=== PATIENT | male | born 1995 | race Caucasian/White ===

== ENCOUNTER 2018-11-16 06:24 | Emergency (ER) | payer SELFPAY ==
[2018-11-16 07:34] VITALS: BP 117/66; PULSE 58; TEMP 97.9; BMI 24.3
--- NOTE | 2018-11-16 07:57 | PDOC ---
History of Present Illness - General Chief Complaint: Sore Throat Stated Complaint: SORE THROAT Time Seen by Provider: 11/16/18 07:37 - History of Present Illness Initial Comments: 11/16/18 08:51 23 years old with no significant past medical history active tobacco presents to the ED with three-day history of sore throat and runny nose congestion cough with some sputum Symptoms are mild to moderate persistent constant no neck stiffness no nausea no vomiting no diarrhea no chest pain. Past History - Past Medical History Allergies/Adverse Reactions: Allergies Allergy/AdvReac Type Severity Reaction Status Date / Time No Known Allergies Allergy Verified 11/16/18 07:16 Home Medications: Ambulatory Orders Azithromycin [Zithromax 250mg Tablets -] 250 mg PO DAILY #6 tablet 11/16/18 CVA: No COPD: No - Immunization History Immunization Up to Date: Yes - Suicide/Smoking/Psychosocial Hx Smoking History: Current every day smoker Number of Cigarettes Smoked Daily: 10 Information on smoking cessation initiated: No Hx Alcohol Use: No Drug/Substance Use Hx: No Review of Systems - Review of Systems Comments:: 11/16/18 08:52 ROS: A complete review of 10 out of 10 review of systems is taken and is negative apart from what is previously mentioned below and in the HPI. *Physical Exam - Vital Signs Last Vital Signs Temp Pulse Resp BP Pulse Ox 97.9 F 58 L 17 117/66 100 11/16/18 07:16 11/16/18 07:16 11/16/18 07:16 11/16/18 07:16 11/16/18 07:16 - Physical Exam Comments: 11/16/18 08:52 Vitals: Triage Vital signs reviewed General Appearance: no acute distress, well nourished well developed, Head: Atraumatic, Eyes: Pupils equal reactive round, extraocular movement intact Nose: Nares patent bilaterally;+ nasal congestion Throat: Posterior oropharynx with erythema, mucous membranes moist, Neck: Supple;No Nucal rigidity Chest Wall: Nontender Cardiac: Regular rate and rhythym, no murmurs, no rubs, no gallops, Lungs: Clear to auscultation bilateral, good air movement bilaterally, Abdomen: Soft, non distended, normal bowel sounds, non tender to palpation Extremities: Full range of motion to all extremities, no cyanosis, clubbing, or edema Skin: Warm and dry, no rashes or lesions, no rash, no petechiae Psych: normal mood, normal affect Medical Decision Making - Medical Decision Making 11/16/18 08:53 Well-appearing no apparent distress history examination consistent with URI. Given active tobacco use with signs and symptoms of bronchitis and green sputum we'll treat with Z-Mik rapid strep negative Findings, the need for follow-up and strict return instructions discussed with patient. 11/16/18 11:26 *DC/Admit/Observation/Transfer Diagnosis at time of Disposition: Bronchitis - Discharge Dispostion Disposition: HOME Decision to Admit order: No - Prescriptions Prescriptions: Azithromycin [Zithromax 250mg Tablets -] 250 mg PO DAILY #6 tablet - Referrals Referrals: [facility] [place] [facility] [place] [Provider Group] - Patient Instructions Printed Discharge Instructions: Acute Bronchitis (Alternative Therapy) Additional Instructions: Stop smoking cigarettes. Alternate Tylenol Motrin as needed as directed on package. Take azithromycin as prescribed. Return to the ED for any severe worsening symptoms or for any concerns. Follow-up with the [facility] within one week. - Post Discharge Activity
[2018-11-16] MEDS ORDERED: KETOROLAC TROMETHAMINE 30 MG/1 ML VIAL IM ONE (08:17)
[2018-11-16] MEDS ORDERED: KETOROLAC TROMETHAMINE 30 MG/1 ML VIAL ONE (08:54)
== END 2018-11-16 09:17 | disposition home or self-care (01) ==
LOC: JER 06:24
PROC: 3E0233Z Introduction of Anti-inflammatory into Muscle, Percutaneous Approach (ICD-10-PCS; principal; 2018-11-16)
DX: J40 Bronchitis, not specified as acute or chronic (principal)
CPT/HCPCS: 87070; 87077; 87880; 99281-25